=== PATIENT | female | born 1940 | race Two or more races ===

== ENCOUNTER 2017-08-07 10:43 | Outpatient (CLI) | payer OTHER | END 2017-08-07 10:50 | disposition home or self-care (01) | LOC: SONOGRAMA 10:43 | DX: N60.11 Diffuse cystic mastopathy of right breast (principal); N60.12 Diffuse cystic mastopathy of left breast; N63.11 Unspecified lump in the right breast, upper outer quadrant ==

== ENCOUNTER 2017-08-13 12:04 | Outpatient (CLI) | payer OTHER ==
[2017-08-13] MEDS ORDERED: NORVASC10 MG PO (14:59)
[2017-08-13] MEDS ORDERED: LIPITOR40 MG PO (14:59)
[2017-08-13] MEDS ORDERED: HYZAAR 100-251 EACH PO (14:59)
== END 2017-08-13 12:12 | disposition home or self-care (01) ==
LOC: RAD 12:04
DX: I10 Essential (primary) hypertension (principal)

== ENCOUNTER 2017-08-21 06:30 | Day surgery (SDC) | payer OTHER ==
[~2017-08-21 06:30] MED LIST: HYZAAR 100-251 EACH PO; LIPITOR40 MG PO; NORVASC10 MG PO
== END 2017-08-21 17:10 | disposition home or self-care (01) ==
LOC: CIR.AMB 06:30
DX: D24.2 Benign neoplasm of left breast (principal)

== ENCOUNTER 2021-07-26 09:57 | Day surgery (SDC) | payer OTHER | END 2021-07-26 17:20 | disposition home or self-care (01) | LOC: CIR.AMB 09:57 | PROVIDERS: ATTEND Surgery | DX: D05.11 Intraductal carcinoma in situ of right breast (principal); R59.0 Localized enlarged lymph nodes; Z20.822 Contact with and (suspected) exposure to COVID-19; Z88.0 Allergy status to penicillin; I10 Essential (primary) hypertension; E78.00 Pure hypercholesterolemia, unspecified; Z87.891 Personal history of nicotine dependence | CPT/HCPCS: 19281; 19301; 38525; 38900; A9541 ==